=== PATIENT | female | born 1980 | race Caucasian/White ===

== ENCOUNTER 2021-03-18 20:41 | Emergency (ER) | payer OTHER ==
[2021-03-18 21:03] VITALS: BP 184/107; PULSE 96; TEMP 98.4; BMI 25.4
== END 2021-03-18 22:23 | disposition home or self-care (01) ==
LOC: FER 20:41
DX: S63.501A Unspecified sprain of right wrist, initial encounter (principal); S60.511A Abrasion of right hand, initial encounter; S80.211A Abrasion, right knee, initial encounter
CPT/HCPCS: 70450-TC; 72125-TC; 99284-25